=== PATIENT | female | born 1935 | race Caucasian/White ===

== ENCOUNTER 2025-05-01 11:08 | Inpatient (IN) | payer MEDICARE, OTHER ==
--- NOTE | 2025-05-01 11:35 | ED ---
Abdominal Pain HPI - General Source: patient, family, RN notes reviewed Mode of arrival: wheelchair Limitations: no limitations <Cr Agudelo - Last Filed: 05/01/25 11:33> - General Source: patient, family, RN notes reviewed Limitations: no limitations <En Reza - Last Filed: 05/01/25 14:20> - General Stated Complaint: weight loss Time Seen by Provider: 05/01/25 11:21 - History of Present Illness Initial Comments: Quick note: This is an 89-year-old female with recent diagnosis of stage IIIb kidney failure presenting with daughter for lower abdominal pain starting this morning. Daughter notes that patient is also had very poor appetite for the past 2 weeks with associated weakness, weight loss and nausea. Patient also notes she has been having poor sleep. Endorses history of kidney stones and UTIs. Denies fever, chills, chest pain, dyspnea. (Cr Agudelo) Patient is an 89-year-old female present to the emergency department from doctors office with concern for weakness and failure to thrive. Patient has had decreased appetite over the past 3 to 4 weeks. Decreased oral intake. Patient has had nausea. Patient has difficult time getting around and now is using a walker and only able to barely make it to the bathroom. No fever. Patient had some abdominal discomfort this morning, none at this time. No isolated area of weakness or no confusion. (En Reza) - Related Data Home Medications Medication Instructions Recorded Confirmed Ascorbic Acid [Vitamin C] 500 mg PO DAILY 08/21/23 08/21/23 Cholecalciferol [Vitamin D3 (25 25 mcg PO DAILY 08/21/23 08/21/23 Mcg = 1000 Iu)] Magnesium 200 mg PO DAILY 08/21/23 08/21/23 [place]-3/Dha/Epa/Fish Oil [Fish Oil 1 each PO DAILY 08/21/23 08/21/23 1,000 mg Softgel] Vit C/E/Zn/Coppr/Lutein/Zeaxan 1 each PO DAILY 08/21/23 08/21/23 [Preservision Areds 2 Softgel] amLODIPine [Norvasc] 20 mg PO DAILY 08/21/23 08/27/23 lisinopriL [Zestril] 10 mg PO DAILY 08/21/23 08/27/23 Allergies Allergy/AdvReac Type Severity Reaction Status Date / Time Iodinated Contrast Media Allergy Rash/Hives Verified 05/01/25 11:38 meperidine [From Demerol] Allergy Rash/Hives Verified 05/01/25 11:38 nitrofurantoin Allergy Rash/Hives Verified 05/01/25 11:38 [From Macrobid] Sulfa (Sulfonamide Allergy Rash/Hives Verified 05/01/25 11:38 Antibiotics) sulfamethoxazole AdvReac Nausea & Verified 05/01/25 11:38 [From Bactrim] Vomiting trimethoprim [From Bactrim] AdvReac Nausea & Verified 05/01/25 11:38 Vomiting Review of Systems ROS Other: All systems not noted in ROS Statement are negative. <MagnusCr - Last Filed: 05/01/25 11:33> ROS Other: All systems not noted in ROS Statement are negative. Constitutional: Denies: fever Eyes: Denies: eye pain ENT: Denies: ear pain Respiratory: Denies: cough Cardiovascular: Denies: chest pain Endocrine: Reports: fatigue Gastrointestinal: Reports: as per HPI, nausea Neurological: Reports: as per HPI, weakness. Denies: headache, confusion <En Reza - Last Filed: 05/01/25 14:20> ROS Statement: Those systems with pertinent positive or pertinent negative responses have been documented in the HPI. General Exam <MagnusCr - Last Filed: 05/01/25 11:33> Limitations: no limitations General appearance: alert, in no apparent distress Head exam: Present: normocephalic Eye exam: Present: normal appearance, PERRL, EOMI ENT exam: Present: normal oropharynx Neck exam: Present: normal inspection Respiratory exam: Present: normal lung sounds bilaterally Cardiovascular Exam: Present: regular rate, normal rhythm GI/Abdominal exam: Present: soft. Absent: tenderness Extremities exam: Present: normal inspection. Absent: pedal edema, calf tenderness Neurological exam: Present: alert, CN II-XII intact. Absent: motor sensory deficit Psychiatric exam: Present: normal affect, normal mood Skin exam: Present: normal color <RezaEn - Last Filed: 05/01/25 14:20> - General Exam Comments Initial Comments: Visual Physical Exam Vital signs reviewed General: Well-appearing, nontoxic, no acute distress. Head: Normocephalic, atraumatic Eyes: PERRLA, EOMI ENT: Airway patent Chest: Nonlabored breathing Skin: No visual rash, normal skin tone Neuro: Alert and oriented 3 Musculoskeletal: No gross abnormalities (Cr Agudelo) Course Vital Signs 05/01/25 11:32 Temperature 97.4 F L Pulse Rate 56 L Respiratory 18 Rate Blood Pressure 104/63 O2 Sat by Pulse 98 Oximetry Medical Decision Making <Cr Agudelo - Last Filed: 05/01/25 11:33> - Lab Data Result diagrams: 05/01/25 12:15 05/01/25 12:15 <JuaquinEn - Last Filed: 05/01/25 14:20> - Medical Decision Making I completed the quick note portion of this chart signed MARYBEL Santamaria (Cr Agudelo) Was pt. sent in by a medical professional or institution ([facility], POWER CHECKER, urgent care, hospital, or intermediate...) When possible be specific @ -Patient was sent from Dr. Bradley office Did you speak to anyone other than the patient for history (EMS, parent, family, police, friend...)? What history was obtained from this source @ -Family is present and helps provide history including patient's recent decline. Also regarding primary care's concerns for calcium level and worsening renal function Did you review nursing and triage notes (agree or disagree)? Why? @ -I reviewed and agree with nursing and triage notes Were old charts reviewed (outside hosp., previous admission, EMS record, old EKG, old radiological studies, urgent care reports/EKG's, intermediate records)? Report findings @ -No old charts were reviewed Differential Diagnosis (chest pain, altered mental status, abdominal pain women, abdominal pain men, vaginal bleeding, weakness, fever, dyspnea, syncope, headache, dizziness, GI bleed, back pain, seizure, CVA, palpatations, mental health, musculoskeletal)? @ -Differential Weakness: Hypoglycemia, shock, sepsis, hyponatremia, anemia, infection, MA, ETOH, adverse medicine reaction, overdose, stroke, this is not meant to be an all-inclusive list. EKG interpreted by me (3pts min.). @ -As above X-rays interpreted by me (1pt min.). @ -None done CT interpreted by me (1pt min.). @ -None done U/S interpreted by me (1pt. min.). @ -None done What testing was considered but not performed or refused? (CT, X-rays, U/S, labs)? Why? @ -None What meds were considered but not given or refused? Why? @ -None Did you discuss the management of the patient with other professionals (professionals i.e. , PA, POWER CHECKER, lab, RT, psych nurse, group social worker, range mechanic, teacher, fire information officer, case management director)? Give summary @ -Dr. Sweeney to admit covering Dr. Bradley Was smoking cessation discussed for >3mins.? @ -No Was critical care preformed (if so, how long)? @ -No Were there social determinants of health that impacted care today? How? (Homelessness, low income, unemployed, alcoholism, drug addiction, transportation, low edu. Level, literacy, decrease access to med. care, [place] [facility], rehab)? @ -No Was there de-escalation of care discussed even if they declined (Discuss DNR or withdrawal of care, Hospice)? DNR status @ -No What co-morbidities impacted this encounter? (DM, HTN, Smoking, COPD, CAD, Cancer, CVA, ARF, Chemo, Hep., AIDS, mental health diagnosis, sleep apnea, morbid obesity)? @ -None Was patient admitted / discharged? Hospital course, mention meds given and route, prescriptions, significant lab abnormalities, going to OR and other perti nent info. @ -Patient presents with generalized weakness, decreased appetite decreased intake. Patient has urinary tract infection. Also hyponatremia. Patient will be admitted with fluids and IV antibiotics. Patient and family updated. Admission orders written. Undiagnosed new problem with uncertain prognosis? @ -No Drug Therapy requiring intensive monitoring for toxicity (Heparin, Nitro, I nsulin, Cardizem)? @ -No Were any procedures done? @ -No Diagnosis/symptom? @ -UTI, hyponatremia Acute, or Chronic, or Acute on Chronic? @ -Acute, acute Uncomplicated (without systemic symptoms) or Complicated (systemic symptoms)? @ -Complicated with weakness limiting mobilization Side effects of treatment? @ -No Exacerbation, Progression, or Severe Exacerbation? @ -No Poses a threat to life or bodily function? How? (Chest pain, [place], MA, pneumonia, PE, COPD, DKA, ARF, appy, cholecystitis, CVA, Diverticulitis, Homicidal, Suicidal, threat to staff... and all critical care pts) @ -No (En Reza) - Lab Data Lab Results 05/01/25 05/01/25 05/01/25 Range/Units 12:15 12:15 12:15 WBC 7.04 (4.50-10.00) 10*3/uL RBC 4.57 (4.10-5.20) 10*6/uL Hgb 14.3 (12.0-15.0) g/dL Hct 40.4 (37.2-46.3) % MCV 88.4 (80.0-97.0) fL MCH 31.3 (27.0-32.0) pg MCHC 35.4 (32.0-37.0) g/dL Plt Count 267 (140-440) 10*3/uL MPV 9.3 L (9.5-12.2) fL Immature Gran % (Auto) 0.9 % Neutrophils % 71.6 % Lymphocytes % 14.9 % Monocytes % 11.8 % Eosinophils % 0.1 % Basophils % 0.7 % Immature Gran # 0.06 H (0.00-0.04) 10*3/uL Neutrophils # 5.04 (1.80-7.70) 10*3/uL Lymphocytes # 1.05 (0.90-5.00) 10*3/uL Monocytes # 0.83 (0.20-1.00) 10*3/uL Eosinophils # 0.01 L (0.04-0.35) 10*3/uL Basophils # 0.05 (0.00-0.10) 10*3/uL Sodium 128 L (137-145) mmol/L Potassium 3.7 (3.5-5.1) mmol/L Chloride 90 L (98-107) mmol/L Carbon Dioxide 29 (22-30) mmol/L Anion Gap 9 mmol/L BUN 19 H (7-17) mg/dL Creatinine 0.85 (0.52-1.04) mg/dL Est GFR (CKD-EPI)AfAm 71 (>60 ml/min/1.73 sqM) Est GFR (CKD-EPI)NonAf 61 (>60 ml/min/1.73 sqM) Glucose 102 H (74-99) mg/dL Plasma Lactic Acid Alek 1.1 (0.7-2.0) mmol/L Calcium 10.6 H (8.4-10.2) mg/dL Magnesium 2.0 (1.6-2.3) mg/dL Total Bilirubin 0.9 (0.2-1.3) mg/dL AST 31 (14-36) U/L ALT 25 (4-34) U/L Alkaline Phosphatase 84 (38-126) U/L Total Protein 6.8 (6.3-8.2) g/dL Albumin 4.1 (3.5-5.0) g/dL Amylase 103 (30-110) U/L Lipase 316 H (23-300) U/L Urine Color Urine Appearance (Clear) Urine pH (5.0-8.0) Ur Specific [place] (1.001-1.035) Urine Protein (Negative) Urine Glucose (UA) (Negative) Urine Ketones (Negative) Urine Blood (Negative) Urine Nitrite (Negative) Urine Bilirubin (Negative) Urine Urobilinogen (<2.0) mg/dL Ur Leukocyte Esterase (Negative) Urine RBC (0-5) /hpf Urine WBC (0-5) /hpf Ur Squamous Epith Cells (0-4) /hpf Urine Mucus (None) /hpf 05/01/25 Range/Units 12:53 WBC (4.50-10.00) 10*3/uL RBC (4.10-5.20) 10*6/uL Hgb (12.0-15.0) g/dL Hct (37.2-46.3) % MCV (80.0-97.0) fL MCH (27.0-32.0) pg MCHC (32.0-37.0) g/dL Plt Count (140-440) 10*3/uL MPV (9.5-12.2) fL Immature Gran % (Auto) % Neutrophils % % Lymphocytes % % Monocytes % % Eosinophils % % Basophils % % Immature Gran # (0.00-0.04) 10*3/uL Neutrophils # (1.80-7.70) 10*3/uL Lymphocytes # (0.90-5.00) 10*3/uL Monocytes # (0.20-1.00) 10*3/uL Eosinophils # (0.04-0.35) 10*3/uL Basophils # (0.00-0.10) 10*3/uL Sodium (137-145) mmol/L Potassium (3.5-5.1) mmol/L Chloride (98-107) mmol/L Carbon Dioxide (22-30) mmol/L Anion Gap mmol/L BUN (7-17) mg/dL Creatinine (0.52-1.04) mg/dL Est GFR (CKD-EPI)AfAm (>60 ml/min/1.73 sqM) Est GFR (CKD-EPI)NonAf (>60 ml/min/1.73 sqM) Glucose (74-99) mg/dL Plasma Lactic Acid Alek (0.7-2.0) mmol/L Calcium (8.4-10.2) mg/dL Magnesium (1.6-2.3) mg/dL Total Bilirubin (0.2-1.3) mg/dL AST (14-36) U/L ALT (4-34) U/L Alkaline Phosphatase (38-126) U/L Total Protein (6.3-8.2) g/dL Albumin (3.5-5.0) g/dL Amylase (30-110) U/L Lipase (23-300) U/L Urine Color Yellow Urine Appearance Turbid H (Clear) Urine pH 7.0 (5.0-8.0) Ur Specific [place] 1.014 (1.001-1.035) Urine Protein Negative (Negative) Urine Glucose (UA) Negative (Negative) Urine Ketones Negative (Negative) Urine Blood Small H (Negative) Urine Nitrite Negative (Negative) Urine Bilirubin Negative (Negative) Urine Urobilinogen <2.0 (<2.0) mg/dL Ur Leukocyte Esterase Large H (Negative) Urine RBC 11 H (0-5) /hpf Urine WBC >182 H (0-5) /hpf Ur Squamous Epith Cells 3 (0-4) /hpf Urine Mucus Rare H (None) /hpf Disposition <Cr Agudelo - Last Filed: 05/01/25 11:33> Is patient prescribed a controlled substance at d/c from ED?: No Time of Disposition: 14:20 <En Reza - Last Filed: 05/01/25 14:20> Clinical Impression: Hyponatremia, Urinary tract infection Disposition: ADMITTED IP TO THIS HOSP Referrals: Alaina Randall FNPBC [REFERRING] - 1-2 days
[2025-05-01 12:21] LABS: Basophils # (A) 0.05 10*3/uL (0.00-0.10); Basophils % (A) 0.7 %; Eosinophils # (A) 0.01 10*3/uL (0.04-0.35); Eosinophils % (A) 0.1 %; HCT 40.4 % (37.2-46.3); HGB 14.3 g/dL (12.0-15.0); Lymphocytes # (A) 1.05 10*3/uL (0.90-5.00); Lymphocytes % (A) 14.9 %; MCH 31.3 pg (27.0-32.0); MCHC 35.4 g/dL (32.0-37.0); MCV 88.4 fL (80.0-97.0); Mean Platelet Volume 9.3 fL (9.5-12.2); Monocytes # (A) 0.83 10*3/uL (0.20-1.00); Monocytes % (A) 11.8 %; Neutrophils # (A) 5.04 10*3/uL (1.80-7.70); Neutrophils % (A) 71.6 %; Platelet Count 267 10*3/uL (140-440); RBC 4.57 10*6/uL (4.10-5.20); RDW 13.5 % (11.5-14.5); WBC 7.04 10*3/uL (4.50-10.00)
[2025-05-01 12:32] LABS: ALT 25 U/L (4-34); AST 31 U/L (14-36); African American GFR (CKD) 71 (>60 ml/min/1.73 sqM); Albumin 4.1 g/dL (3.5-5.0); Alkaline Phosphatase 84 U/L (38-126); Amylase 103 U/L (30-110); Anion Gap 9 mmol/L; Blood Urea Nitrogen 19 mg/dL (7-17); Calcium 10.6 mg/dL (8.4-10.2); Carbon Dioxide 29 mmol/L (22-30); Chloride 90 mmol/L (98-107); Glucose 102 mg/dL (74-99); Lipase 316 U/L (23-300); Non-African American GFR(CKD) 61 (>60 ml/min/1.73 sqM); Potassium 3.7 mmol/L (3.5-5.1); Sodium 128 mmol/L (137-145); Total Bilirubin 0.9 mg/dL (0.2-1.3); Total Protein 6.8 g/dL (6.3-8.2)
[2025-05-01 13:11] LABS: Appearance,Urine Turbid (Clear); Bilirubin,Urine Negative (Negative); Blood,Urine Small (Negative); Color,Urine Yellow; Glucose,Urine (UA) Negative (Negative); Ketones,Urine Negative (Negative); Leukocyte Esterase,Urine Large (Negative); Mucus,Urine Rare /hpf; Nitrite,Urine Negative (Negative); Protein,Urine Negative (Negative); RBC,Urine 11 /hpf (0-5); Specific Gravity,Urine 1.014 (1.001-1.035); Squamous Epithelial Cell,Urine 3 /hpf (0-4); Urobilinogen,Urine <2.0 mg/dL (<2.0); WBC,Urine >182 /hpf (0-5)
[2025-05-01] MEDS ORDERED: NALOXONE 0.4 MG/ML 1 ML VIAL IV PRN (14:22)
[2025-05-01] MEDS ORDERED: ACETAMINOPHEN TAB 325 MG TAB PO PRN ×2 (14:22→17:46)
[2025-05-01] MEDS: SODIUM CHLORIDE 0.9% 1,000 ML IV SCH (14:55)
--- NOTE | 2025-05-01 18:45 | P.HPIM ---
History of Present Illness H&P Date: 05/01/25 Chief Complaint: Weak and tired Very pleasant 89-year-old patient follows with Dr. Mason Bradley. In the room patient is accompanied by his son and [id number] who are out of town. She does live with the daughter. About 2 weeks ago patient woke up with hurting all over the body. She took some naproxen and Tylenol. And then went to see her family doctor some additional pain medications given. Not much help she decided to go back. Tylenol 3 was then given. She decided not to take it as the pain had gotten better. In the last 2 weeks her appetite is really gone down. Has become somewhat unsteady and using a cane sometimes a walker. Slightly lightheaded. Has been having bowel movements. Just feels cold. Denied any fever and chills. Slight burning in the urine. He has slight abdominal lower abdominal pain discomfort is likely has resolved. History of kidney stones. Also had some nausea. Review of systems: GEN.: Tired decreased appetite EYES: None HEENT: None NECK: None RESPIRATORY: None CARDIOVASCULAR: None GASTROINTESTINAL: None GENITOURINARY: Some burning in the urine] MUSCULOSKELETAL: Joint pain LYMPHATICS: None HEMATOLOGICAL: None PSYCHIATRY: None NEUROLOGICAL: Using cane and a walker Social history: Did smoke in the past. No alcohol. Lives with her daughter. Does use a cane and a walker Physical examination: VITAL SIGNS: 97.4, 56, 18, 104/63, 98% room air GENERAL: BMI 20.5, sitting up in the recliner a bit tired appearing. EYES: Pupils equal. Conjunctiva shiloh l. HEENT: External appearance of nose and ears normal, oral cavity grossly normal. NECK: JVD not raised; masses not palpable. HEART: First and second heart sounds are normal; no edema. LUNGS: Respiratory rate normal; clear to auscultation. ABDOMEN: Soft, nontender, liver spleen not palpable, no masses palpable. PSYCH: Alert and oriented x3; mood and affect shiloh l. MUSCULOSKELETAL:No Clubbing/cyanosis;muscles-grossly intact. Decreased muscle mass subcutaneous fat. Prominent bone/OA. NEUROLOGICAL: Cranial nerves grossly intact; no facial asymmetry, power and sensation grossly intact. LYMPHATICS: No lymph nodes palpable in the axilla and neck INVESTIGATIONS, reviewed in the clinical context: White count 7.0 hemoglobin 14.3 platelets 267 sodium 128 potassium 3.7 BUN 19 creatinine 0.85 calcium 10.6 UA: Nitrite negative leukoesterase positive. WBC more than 182 Assessment plan: - Generalized medical asthenia anorexia from underlying UTI IV fluids. -Hyponatremia from decreased solute intake. Encourage oral intake - Acute UTI with cystitis IV ceftriaxone -Chronic kidney disease stage III nephrosclerosis - Gait dysfunction does use a cane and a walker - Clinical dehydration from decreased oral intake. IV fluids - Essential hypertension. Currently blood pressure running on the lower side because of dehydration. Will stop amlodipine. Cut back Zestoretic to Zestril 5 mg a day starting tomorrow. - Full code Care was discussed with patient's son and [id number] at the bedside. Change IV fluids to lactated Ringer's. Past Medical History Additional Past Medical History / Comment(s): stage 3 kidney failure, History of Any Multi-Drug Resistant Organisms: None Reported Past Surgical History: Hysterectomy, Orthopedic Surgery Additional Past Surgical History / Comment(s): left knee, cyst removal, bladder suspension, Past Psychological History: No Psychological Hx Reported Smoking Status: Former smoker Past Alcohol Use History: None Reported Past Drug Use History: Marijuana Medications and Allergies Home Medications Medication Instructions Recorded Confirmed Type [place]-3/Dha/Epa/Fish Oil [Fish Oil 1 cap PO DAILY 08/21/23 05/01/25 History 1,000 mg Softgel] Acetaminophen [Tylenol Arthritis] 650 mg PO Q6H PRN 05/01/25 05/01/25 History Acetaminophen with Codeine 1 tab PO TID PRN 05/01/25 05/01/25 History [Tylenol w/Codeine #2 Tablet] Lisinopril-Hctz 20-25 mg 1 tab PO DAILY 05/01/25 05/01/25 History [Zestoretic 20-25] amLODIPine [Norvasc] 5 mg PO DAILY 05/01/25 05/01/25 History Allergies Allergy/AdvReac Type Severity Reaction Status Date / Time Iodinated Contrast Media Allergy Rash/Hives Verified 05/01/25 14:24 meperidine [From Demerol] Allergy Rash/Hives Verified 05/01/25 14:24 nitrofurantoin Allergy Rash/Hives Verified 05/01/25 14:24 [From Macrobid] Sulfa (Sulfonamide Allergy Rash/Hives Verified 05/01/25 14:24 Antibiotics) sulfamethoxazole AdvReac Nausea & Verified 05/01/25 14:24 [From Bactrim] Vomiting trimethoprim [From Bactrim] AdvReac Nausea & Verified 05/01/25 14:24 Vomiting Physical Exam Vitals: Vital Signs Temp Pulse Resp BP Pulse Ox 05/01/25 17:31 98.2 F 90 18 115/70 97 05/01/25 15:05 98.2 F 97 16 129/75 96 05/01/25 11:32 97.4 F L 56 L 18 104/63 98 Intake and Output 05/01/25 05/01/25 05/01/25 06:59 14:59 22:59 Other: Weight 57.606 kg Results CBC & Chem 7: 05/01/25 12:15 05/01/25 12:15 Labs: Abnormal Lab Results - Last 24 Hours (Table) 05/01/25 05/01/25 05/01/25 Range/Units 12:15 12:15 12:53 MPV 9.3 L (9.5-12.2) fL Immature Gran # 0.06 H (0.00-0.04) 10*3/uL Eosinophils # 0.01 L (0.04-0.35) 10*3/uL Sodium 128 L (137-145) mmol/L Chloride 90 L (98-107) mmol/L BUN 19 H (7-17) mg/dL Glucose 102 H (74-99) mg/dL Calcium 10.6 H (8.4-10.2) mg/dL Lipase 316 H (23-300) U/L Urine Appearance Turbid H (Clear) Urine Blood Small H (Negative) Ur Leukocyte Esterase Large H (Negative) Urine RBC 11 H (0-5) /hpf Urine WBC >182 H (0-5) /hpf Urine Mucus Rare H (None) /hpf
[2025-05-01] MEDS: ENOXAPARIN 40 MG/0.4 ML SYRINGE SQ SCH (19:45)
[2025-05-01] MEDS: LACTATED RINGERS 1,000 ML IV SCH (19:45)
[2025-05-02] MEDS: Acetaminophen-Codeine 300-30mg TAB PO PRN (01:00)
[2025-05-02 07:18] LABS: ALT 20 U/L (4-34); AST 26 U/L (14-36); African American GFR (CKD) 68 (>60 ml/min/1.73 sqM); Albumin 3.1 g/dL (3.5-5.0); Albumin/Globulin Ratio 1.2; Alkaline Phosphatase 70 U/L (38-126); Anion Gap 7 mmol/L; Blood Urea Nitrogen 19 mg/dL (7-17); Carbon Dioxide 29 mmol/L (22-30); Chloride 93 mmol/L (98-107); Globulin 2.5 g/dL; Glucose 86 mg/dL (74-99); Magnesium 1.8 mg/dL (1.6-2.3); Non-African American GFR(CKD) 59 (>60 ml/min/1.73 sqM); Potassium 3.5 mmol/L (3.5-5.1); Sodium 129 mmol/L (137-145); Total Bilirubin 0.5 mg/dL (0.2-1.3); Total Protein 5.6 g/dL (6.3-8.2)
[2025-05-02 08:06] VITALS: BP 110/61; PULSE 74; RESP 18; TEMP 98.2
[2025-05-02] MEDS ORDERED: amLODIPine 5 MG TAB PO SCH (09:00)
[2025-05-02] MEDS ORDERED: LISINOPRIL-HCTZ 20-25 MG 1 EACH TAB PO SCH (09:00)
[2025-05-02 09:22] LABS: Basophils # (A) 0.07 X 10*3/uL (0.00-0.10); Basophils % (A) 0.8 %; Eosinophils % (A) 1.1 %; HCT 37.7 % (37.2-46.3); HGB 12.5 g/dL (12.0-15.0); Lymphocytes # (A) 1.25 X 10*3/uL (0.90-5.00); Lymphocytes % (A) 13.8 %; MCH 30.2 pg (27.0-32.0); MCHC 33.2 g/dL (32.0-37.0); MCV 91.1 FL (80.0-97.0); Mean Platelet Volume 9.9 FL (9.5-12.2); Monocytes # (A) 1.19 X 10*3/uL (0.20-1.00); Monocytes % (A) 13.1 %; NRBC Per 100 WBC 0 X 10*3/uL (0.00-0.01); Neutrophils # (A) 6.41 X 10*3/uL (1.80-7.70); Neutrophils % (A) 70.4 %; Platelet Count 246 X 10*3/uL (140-440); RBC 4.14 X 10*6/uL (4.10-5.20); RDW 13.6 % (11.5-14.5); WBC 9.09 X 10*3/uL (4.50-10.00)
[2025-05-02] MEDS: lisinopriL 5 MG TAB PO SCH (10:06)
--- NOTE | 2025-05-02 18:55 | P.DS ---
Providers Date of admission: 05/01/25 14:25 Expected date of discharge: 05/02/25 Attending physician: Juan Sweeney Primary care physician: Mason Bradley [place] [facility] Course: Chief Complaint: Weak and tired Very pleasant 89-year-old patient follows with Dr. Mason Bradley. In the room patient is accompanied by his son and [id number] who are out of town. She does live with the daughter. About 2 weeks ago patient woke up with hurting all over the body. She took some naproxen and Tylenol. And then went to see her family doctor some additional pain medications given. Not much help she decided to go back. Tylenol 3 was then given. She decided not to take it as the pain had gotten better. In the last 2 weeks her appetite is really gone down. Has become somewhat unsteady and using a cane sometimes a walker. Slightly lightheaded. Has been having bowel movements. Just feels cold. Denied any fever and chills. Slight burning in the urine. He has slight abdominal lower abdominal pain discomfort is likely has resolved. History of kidney stones. Also had some nausea. May 02: Patient doing much better after getting IV fluids. Patient daughter at the bedside. Fluid and oral intake was discussed. Will give no further antibiotics. Patient had minimal symptoms. Several questions were answered. Given her age patient doing rather well. As patient blood pressure was softer. Patient's amlodipine was discontinued. Hydrochlorothiazide also has been discontinued. Discussion and discharge planning more than 35 minutes Social history: Did smoke in the past. No alcohol. Lives with her daughter. Does use a cane and a walker Physical examination: VITAL SIGNS: 98.2, 74, 18, 110 x 61, 92% room air GENERAL: Resting, comfortable EYES: Pupils equal. Conjunctiva shiloh l. HEENT: External appearance of nose and ears normal, oral cavity grossly normal. NECK: JVD not raised; masses not palpable. HEART: First and second heart sounds are normal; no edema. LUNGS: Respiratory rate normal; clear to auscultation. ABDOMEN: Soft, nontender, liver spleen not palpable, no masses palpable. PSYCH: Alert and oriented x3; mood and affect shiloh l. MUSCULOSKELETAL:No Clubbing/cyanosis;muscles-grossly intact. Decreased muscle mass subcutaneous fat. Prominent bone/OA. INVESTIGATIONS, reviewed in the clinical context: May 02: White count 9 hemoglobin 12.5 platelets 246 sodium 129 potassium 3.5 BUN 19 creatinine 0.88 White count 7.0 hemoglobin 14.3 platelets 267 sodium 128 potassium 3.7 BUN 19 creatinine 0.85 calcium 10.6 UA: Nitrite negative leukoesterase positive. WBC more than 182 Assessment plan: - Generalized medical asthenia anorexia from underlying UTI, and dehydration: Improved IV fluids. -Hyponatremia from decreased solute intake. Encourage oral intake - Acute UTI with cystitis IV ceftriaxone -Chronic kidney disease stage III nephrosclerosis - Gait dysfunction does use a cane and a walker - Clinical dehydration from decreased oral intake. Improved IV fluids - Essential hypertension. Currently blood pressure running on the lower side because of dehydration. Will stop amlodipine. Cut back Zestoretic to Zestril 5 mg nightly - Full code Disposition: Home Past Medical History Additional Past Medical History / Comment(s): stage 3 kidney failure, History of Any Multi-Drug Resistant Organisms: None Reported Past Surgical History: Hysterectomy, Orthopedic Surgery Additional Past Surgical History / Comment(s): left knee, cyst removal, bladder suspension, Past Psychological History: No Psychological Hx Reported Smoking Status: Former smoker Past Alcohol Use History: None Reported Past Drug Use History: Marijuana Plan - Discharge Summary Discharge Rx Participant: Yes New Discharge Prescriptions: New lisinopriL [Zestril] 5 mg PO HS #30 tab Continue [place]-3/Dha/Epa/Fish Oil [Fish Oil 1,000 mg Softgel] 1 cap PO DAILY Acetaminophen with Codeine [Tylenol w/Codeine #2 Tablet] 1 tab PO TID PRN PRN Reason: Pain Acetaminophen [Tylenol Arthritis] 650 mg PO Q6H PRN PRN Reason: Pain Or Fever > 100.5 Discontinued amLODIPine [Norvasc] 5 mg PO DAILY Lisinopril-Hctz 20-25 mg [Zestoretic 20-25] 1 tab PO DAILY Discharge Medication List [place]-3/Dha/Epa/Fish Oil [Fish Oil 1,000 mg Softgel] 1 cap PO DAILY 08/21/23 [History] Acetaminophen [Tylenol Arthritis] 650 mg PO Q6H PRN 05/01/25 [History] Acetaminophen with Codeine [Tylenol w/Codeine #2 Tablet] 1 tab PO TID PRN 05/01/25 [History] lisinopriL [Zestril] 5 mg PO HS #30 tab 05/02/25 [Rx] Follow up Appointment(s)/Referral(s): Alaina Randall FNPBC [REFERRING] - 1-2 days Discharge Disposition: HOME SELF-CARE
== END 2025-05-02 14:19 | disposition home or self-care (01) | DRG 690 ==
LOC: EC 11:08 → 4SSUR 14:25
PROVIDERS: ADMIT Hospitalist; ATTEND Hospitalist
DX: N39.0 Urinary tract infection, site not specified (principal); E87.1 Hypo-osmolality and hyponatremia; N18.32 Chronic kidney disease, stage 3b; I12.9 Hypertensive chronic kidney disease with stage 1 through stage 4 chronic kidney disease, or unspecified chronic kidney disease; R26.89 Other abnormalities of gait and mobility; E86.0 Dehydration; Z79.899 Other long term (current) drug therapy; Z87.891 Personal history of nicotine dependence
CPT/HCPCS: 36415; 80053; 81001; 82150; 83605; 83690; 83735; 85025; 87040; 87077; 87086; 87186; 96361; 96365; 99285